=== PATIENT | female | born 1960 | race Caucasian/White ===

== ENCOUNTER → 2018-05-27 | Day surgery (SDC) | payer SELFPAY ==
[2018-05-08 08:47] VITALS: Ht 167.6 cm; Wt 106.8 kg
[~2018-05-27] VITALS: Ht 167.6 cm; Wt 106.8 kg
[~2018-05-27] MED LIST: LACTATED RINGER'S 1000ML 1,000 ML IV SCH
== END | disposition home or self-care (01) ==
LOC: EDSTATUS 08:30 → C.PAT 12:54
PROVIDERS: ATTEND Obstetrics & Gynecology
DX: N95.0 Postmenopausal bleeding (principal); Z53.9 Procedure and treatment not carried out, unspecified reason